=== PATIENT | male | born 1980 | race Hispanic/Latino ===

== ENCOUNTER 2019-09-11 18:58 | Emergency (ER) | payer SELFPAY ==
[2019-09-11] MEDS ORDERED: ONDANSETRON 4 MG/2 ML VIAL ONE (19:29)
[2019-09-11] MEDS ORDERED: TETANUS & DIPHTHERIA TOX,ADULT 0.5 ML VIAL ONE (19:29)
[2019-09-11] MEDS ORDERED: FENTANYL CITR 100 MCG/2 ML ONE (19:29)
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
[2019-09-11] MEDS ORDERED: HYDROCODONE/APAP 10/325 TAB ONE (21:02)
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
[2019-09-11 22:46] VITALS: TEMP 97.9
[2019-09-11 22:47] VITALS: BP 125/90; O2SAT 100
== END 2019-09-11 22:38 | disposition short-term general hospital (02) ==
LOC: ER 18:58
DX: T23.201A Burn of second degree of right hand, unspecified site, initial encounter (principal); T23.221A Burn of second degree of single right finger (nail) except thumb, initial encounter; T31.0 Burns involving less than 10% of body surface; X10.2XXA Contact with fats and cooking oils, initial encounter; Y93.G3 Activity, cooking and baking; Y92.010 Kitchen of single-family (private) house as the place of occurrence of the external cause; Z23 Encounter for immunization
CPT/HCPCS: 90471; 90714; 96374; 96375; 99285; J2405; J3010

== ENCOUNTER 2019-09-15 21:35 | Emergency (ER) | payer SELFPAY ==
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
[2019-09-15] MEDS ORDERED: HYDROCODONE/APAP 10/325 TAB ONE (22:03)
[2019-09-15 23:24] VITALS: BP 126/90; TEMP 98.6; O2SAT 100
== END 2019-09-15 22:43 | disposition home or self-care (01) ==
LOC: ER 21:35
DX: T23.261A Burn of second degree of back of right hand, initial encounter (principal); X10.2XXA Contact with fats and cooking oils, initial encounter; Y93.G3 Activity, cooking and baking; Y92.009 Unspecified place in unspecified non-institutional (private) residence as the place of occurrence of the external cause; Z72.0 Tobacco use
CPT/HCPCS: 99283